=== PATIENT | male | born 2000 | race Hispanic/Latino ===

== ENCOUNTER 2024-07-13 20:36 | Emergency (ER) | payer SELFPAY ==
[~2024-07-13] VITALS: Ht 180.3 cm; Wt 95.3 kg
[2024-07-13 21:01] VITALS: PULSE 87; RESP 16; TEMP 98.9; O2SAT 100
[2024-07-13] MEDS ORDERED: NAPROSYN500 MG PO (22:42)
== END 2024-07-13 22:53 | disposition home or self-care (01) ==
LOC: ER 20:40
DX: M25.562 Pain in left knee (principal); M25.462 Effusion, left knee; Y93.11 Activity, swimming; Y92.095 Swimming-pool of other non-institutional residence as the place of occurrence of the external cause; F17.210 Nicotine dependence, cigarettes, uncomplicated
CPT/HCPCS: 99283